=== PATIENT | male | born 1960 | race Caucasian/White ===

== ENCOUNTER 2017-04-22 12:14 | Inpatient (IN) | payer OTHER ==
[2017-04-22 13:54] VITALS: BMI 28.0
--- NOTE | 2017-04-22 15:12 | HP ---
COWS - Scale Resting Pulse: 1= OR 81-100 Sweatin=Flushed/Facial Moisture Restless Observation: 1= Difficult to Sit Still Pupil Size: 0= Normal to Room Light Bone or Joint Aches: 2= Severe Diffuse Aches Runny Nose/ Eye Tearin= Runny Nose/Eyes GI Upset > 30mins: 2= Nausea/Diarrhea Tremor Observation: 2= Slight Tremor Visible Yawning Observation: 2= >3x During Session Anxiety or Irritability: 2=Irritable/Anxious Goose Flesh Skin: 3=Piloerection COWS Score: 19 CIWA Score - CIWA Score Nausea/Vomitin-Mild Nausea/No Vomiting Muscle Tremors: 4-Moderate,w/Arms Extend Anxiety: 3 Agitation: 4-Moderately Restless Paroxysmal Sweats: 3 Orientation: 0-Oriented Tacttile Disturbances: 0-None Auditory Disturbances: 0-None Visual Disturbances: 0-None Headache: 0-None Present CIWA-Ar Total Score: 15 Admission ROS S - HPI Chief Complaint: I am here to detox off these drugs. Allergies/Adverse Reactions: Allergies Allergy/AdvReac Type Severity Reaction Status Date / Time No Known Allergies Allergy Verified 04/22/17 14:47 History of Present Illness: Pt is a 56yr old male with a history of alcohol and heroin dependence seeking detox for treatment. Exam Limitations: No Limitations - Ebola screening Have you traveled outside of the country in the last 21 days: No Have you had contact with anyone from an Ebola affected area: No Have you been sick,other than usual withdrawal symptoms: No Do you have a fever: No - Review of Systems Constitutional: Chills, Diaphoresis, Night Sweats, Changes in sleep EENT: reports: Tearing, Nose Congestion Respiratory: reports: No Symptoms reported Cardiac: reports: No Symptoms Reported GI: reports: Nausea, Poor Appetite, Poor Fluid Intake, Indigestion : reports: No Symptoms Reported Musculoskeletal: reports: Back Pain, Joint Pain, Muscle Pain Integumentary: reports: Flushing, Sweating Neuro: reports: Headache, Tingling, Tremors Endocrine: reports: Excessive Sweating, Flushing, Intolerance to Cold, Intolerance to Heat Hematology: reports: No Symptoms Reported Psychiatric: reports: Judgement Intact, Orientated x3, Agitated, Anxious Other Systems: Reviewed and Negative Patient History - Patient Medical History Hx Anemia: No Hx Asthma: Yes Hx Chronic Obstructive Pulmonary Disease (COPD): No Hx Cardiac Disorders: No Hx Hypertension: Yes Hx Hypercholesterolemia: No Hx Pacemaker: No HX Cerebrovascular Accident: No Hx Seizures: No Hx Dementia: No Hx Diabetes: No Hx Gastrointestinal Disorders: No Hx Liver Disease: No Hx Genitourinary Disorders: No Hx Sexually Transmitted Disorders: No Hx Renal Disease (ESRD): No Hx Thyroid Disease: No Hx Human Immunodeficiency Virus (HIV): No (NEGATIVE HX) Hx Hepatitis C: Yes (but completed treatment) Hx Depression: Yes Hx Suicide Attempt: No (denies) Hx Bipolar Disorder: Yes Hx Schizophrenia: No - Patient Surgical History Past Surgical History: No Hx Neurologic Surgery: No Hx Cataract Extraction: No Hx Cardiac Surgery: No Hx Lung Surgery: No Hx Breast Surgery: No Hx Breast Biopsy: No Hx Abdominal Surgery: No Hx Appendectomy: No Hx Cholecystectomy: No Hx Genitourinary Surgery: No Hx Section: No Hx Orthopedic Surgery: No Anesthesia Reaction: No - PPD History Previous Implant?: Yes Documented Results: Negative w/proof Implanted On Prior [facility] Admission?: Yes Date: 07/20/16 Results: 0 mm PPD to be Administered?: No - Reproductive History Patient is a Female of Child Bearing Age (11 -55 yrs old): No - Smoking Cessation Smoking history: Current every day smoker Have you smoked in the past 12 months: Yes Aproximately how many cigarettes per day: 5 Hx Chewing Tobacco Use: No Initiated information on smoking cessation: Yes 'Breaking Loose' booklet given: 04/22/17 - Substance & Tx. History Hx Alcohol Use: Yes Hx Substance Use: Yes Substance Use Type: Alcohol, Heroin Hx Substance Use Treatment: Yes (last detox [facility] [place] 07/18/16) - Substances Abused Heroin Route: Injection Frequency: Daily Amount used: 3-4 bags Age of first use: 26 Date of Last Use: 04/21/17 Alcohol-vodka Route: Oral Frequency: Daily Amount used: 2 pts. Age of first use: 20 Date of Last Use: 04/21/17 Family Disease History - Family Disease History Family Disease History: Diabetes: Mother (HTN), CA: Father ( -prostate - etoh), Other: Father, Mother, Brother (cocaine, alcohol), Sister (crack) Admission Physical Exam [facility] - Vital Signs Vital Signs: Vital Signs - 24 hr 04/22/17 13:52 Temperature 97.8 F Pulse Rate 93 H Respiratory 20 Rate Blood Pressure 147/90 - Physical General Appearance: Yes: Appropriately Dressed, Moderate Distress, Obese, Tremorous, Irritable, Sweating, Anxious HEENTM: Yes: Normal Voice Respiratory: Yes: Lungs Clear, Normal Breath Sounds, No Respiratory Distress Neck: Yes: No masses,lesions,Nodules Breast: Yes: Within Normal Limits Cardiology: Yes: Regular Rhythm, Regular Rate, S1, S2 Abdominal: Yes: Normal Bowel Sounds, Non Tender, Soft Genitourinary: Yes: Within Normal Limits Back: Yes: Normal Inspection Musculoskeletal: Yes: Back pain Extremities: Yes: Normal Capillary Refill, Normal Inspection, Non-Tender, Tremors Neurological: Yes: Fully Oriented, Alert, Normal Response Integumentary: Yes: Normal Color, Diaphoresis, Track Childs Lymphatic: Yes: Within Normal Limits - Diagnostic (1) Asthma Current Visit: Yes Status: Chronic Qualifiers: Asthma severity: mild intermittent Asthma complication type: uncomplicated Qualified Code(s): J45.20 - Mild intermittent asthma, uncomplicated (2) Essential (primary) hypertension Current Visit: Yes Status: Chronic (3) Nicotine dependence Current Visit: Yes Status: Chronic Qualifiers: Nicotine product type: cigarettes Substance use status: uncomplicated Qualified Code(s): F17.210 - Nicotine dependence, cigarettes, uncomplicated (4) Alcohol dependence with uncomplicated withdrawal Current Visit: Yes Status: Chronic (5) Opioid dependence with withdrawal Current Visit: Yes Status: Chronic Cleared for Admission [facility] - Detox or Rehab [facility] Level of Care: Medically Managed Detox Regimen/Protocol: Methadone/Librium S Breath Alcohol Content Breath Alcohol Content: 0 Urine Drug Screen - Results Drug Screen Negative: No Urine Drug Screen Results: OPI-Opiates, BZO-Benzodiazepines
[2017-04-22] MEDS ORDERED: MAGNESIUM HYDROX 2400MG/30ML ORAL SUSPENSION 30 ML CUP PO PRN (15:54)
[2017-04-22] MEDS ORDERED: MENTHOL/PHENOL 1 EACH UD MM PRN (15:54)
[2017-04-22] MEDS ORDERED: ACETAMINOPHEN 325 MG TABLET (FP) PO PRN (15:54)
[2017-04-22] MEDS ORDERED: P-EPHED 60MG/TRIPROLIDI 2.5MG TABLET PO PRN (15:54)
[2017-04-22] MEDS ORDERED: MAG HYDROX/AL HYDROX/SIMETH 30 ML UNIT-DOSE CUP PO PRN (15:54)
[2017-04-22] MEDS ORDERED: LOPERAMIDE HCL 2 MG CAPSULE PO PRN (15:54)
[2017-04-22] MEDS ORDERED: guaiFENesin/D-METHORPHAN HB 10 ML UNIT-DOSE CUPS PO PRN (15:54)
[2017-04-22] MEDS ORDERED: MAGNESIUM CITRATE 300 ML BOTTLE PO PRN (15:54)
[2017-04-22] MEDS ORDERED: ALBUTEROL SO4 6.7 GM HFA INHALER IH PRN (15:55)
[2017-04-22] MEDS ORDERED: chlordiazePOXIDE HCL 25 MG CAPSULE PO ONE (16:45)
[2017-04-22] MEDS: chlordiazePOXIDE HCL 25 MG CAPSULE PO SCH ×2 (17:40→22:46)
[2017-04-22] MEDS: IBUPROFEN 400 MG TABLET (FP) PO PRN (17:47)
[2017-04-22] MEDS ORDERED: METHADONE HCL 10 MG TABLET (FOR DETOX USE ONLY) PO ONE ×2 (19:00→23:00)
[2017-04-22] MEDS ORDERED: NICOTINE POLACRILEX 2 MG GUM BUC PRN (19:15)
[2017-04-22 20:53] LABS: URINE APPEARANCE CLEAR; URINE BILIRUBIN NEGATIVE (NEGATIVE); URINE BLOOD NEGATIVE (NEGATIVE); URINE COLOR YELLOW; URINE GLUCOSE (UA) NEGATIVE (NEGATIVE); URINE KETONE NEGATIVE (NEGATIVE); URINE LEUK ESTERASE NEGATIVE (NEGATIVE); URINE NITRITE NEGATIVE (NEGATIVE); URINE PROTEIN NEGATIVE (NEGATIVE); URINE UROBILINOGEN NEGATIVE E.U./dl (0.2-1.0)
[2017-04-22] MEDS: THIAMINE HCL 100 MG TABLET (FP) PO SCH (22:46)
[2017-04-22] MEDS: NICOTINE 14 MG/24 HOURS TOPICAL PATCH TD SCH (22:48)
[2017-04-22] MEDS: cloNIDine HCL 0.1 MG TABLET PO PRN (22:48)
[2017-04-23] MEDS: chlordiazePOXIDE HCL 25 MG CAPSULE PO SCH ×4 (05:41→22:12)
--- NOTE | 2017-04-23 09:47 | EKG ---
Test Reason : Blood Pressure : / mmHG Vent. Rate : 073 BPM Atrial Rate : 073 BPM P-R Int : 166 ms QRS Dur : 086 ms QT Int : 426 ms P-R-T Axes : 035 001 029 degrees QTc Int : 469 ms NORMAL SINUS RHYTHM NORMAL ECG NO PREVIOUS ECGS AVAILABLE Confirmed by RACHEL KHOURY MD ([id number]) on 04/23/2017 9:47:02 AM Referred By: Galen Grullon Confirmed By:RACHEL KHOURY MD
[2017-04-23] MEDS ORDERED: METHADONE HCL 10 MG TABLET (FOR DETOX USE ONLY) PO SCH (10:00)
[2017-04-23 10:07] LABS: MCH 30.6 pg (25.7-33.7); MCHC 33.8 g/dl (32.0-35.9); MEAN CELL VOLUME 90.5 fl (80-96); MEAN PLT VOLUME 10.2 fl (7.5-11.1); PLATELET COUNT 115 K/MM3 (134-434); RDW 14.5 % (11.9-15.9); WHITE BLOOD COUNT 7.1 K/mm3 (4.0-10.0)
[2017-04-23 10:18] LABS: ALK PHOS 64 U/L (45-117); ANION GAP 7 (8-16); BILIRUBIN,TOTAL 0.9 mg/dL (0.2-1.0); CALCIUM 9.4 mg/dL (8.5-10.1); CO2 29 mmol/L (21-32); CREATININE 0.8 mg/dL (0.7-1.3); GLUCOSE,RANDOM 125 mg/dL (74-106); SGOT/AST 31 U/L (15-37); SGPT/ALT 31 U/L (12-78); TOT PROT 8.4 g/dl (6.4-8.2)
[2017-04-23] MEDS: NICOTINE 14 MG/24 HOURS TOPICAL PATCH TD SCH (11:05)
[2017-04-23] MEDS: cloNIDine HCL 0.1 MG TABLET PO PRN ×2 (11:07→22:12)
[2017-04-23] MEDS: IBUPROFEN 400 MG TABLET (FP) PO PRN ×2 (11:09→17:46)
[2017-04-23] MEDS: amLODIPine BESYLATE 10 MG TABLET (FP) PO SCH (11:09)
[2017-04-23] MEDS: PRENATAL VITAMINS W/ FOLIC ACID TABLET (FP) PO SCH (11:09)
--- NOTE | 2017-04-23 11:30 | PN ---
S CIWA - CIWA Score Nausea/Vomitin Muscle Tremors: 3 Anxiety: 3 Paroxysmal Sweats: 1-Minimal Palms Moist Orientation: 0-Oriented Tacttile Disturbances: 1-Very Mild Itch/Numbness Auditory Disturbances: 1-Very Mild Visual Disturbances: 1-Very Mild Sensitivity Headache: 2-Mild BHS COWS - Scale Resting Pulse: 0= [place] 80 or Below Sweatin= Chills/Flushing Restless Observation: 3= Extraneous Movement Pupil Size: 1= Pupils >than Normal Bone or Joint Aches: 2= Severe Diffuse Aches Runny Nose/ Eye Tearin= Runny Nose/Eyes GI Upset > 30mins: 2= Nausea/Diarrhea Tremor Observation of Outstretched Hands: 2= Slight Tremor Visible Yawning Observation: 1= 1-2x During Session Anxiety or Irritability: 2=Irritable/Anxious Goose Flesh Skin: 0=Smooth Skin COWS Score: 16 BHS Progress Note (SOAP) Subjective: alert,irritable,anxious,interrupted sleep,tremor,pain in the body and back Objective: 04/23/17 11:28 Vital Signs Temperature 96.4 F L 04/23/17 10:50 Pulse Rate 69 04/23/17 10:50 Respiratory Rate 20 04/23/17 10:50 Blood Pressure 117/80 04/23/17 10:50 O2 Sat by Pulse Oximetry (%) ekg nsr,normal ecg Laboratory Last Values WBC 7.1 K/mm3 (4.0-10.0) D 04/23/17 06:00 RBC 4.58 M/mm3 (4.00-5.60) 04/23/17 06:00 Hgb 14.0 GM/dL (11.7-16.9) 04/23/17 06:00 Hct 41.5 % (35.4-49) 04/23/17 06:00 MCV 90.5 fl (80-96) 04/23/17 06:00 MCHC 33.8 g/dl (32.0-35.9) 04/23/17 06:00 RDW 14.5 % (11.9-15.9) 04/23/17 06:00 Plt Count 115 K/MM3 (134-434) L 04/23/17 06:00 MPV 10.2 fl (7.5-11.1) 04/23/17 06:00 Sodium 137 mmol/L (136-145) 04/23/17 06:00 Potassium 3.6 mmol/L (3.5-5.1) 04/23/17 06:00 Chloride 101 mmol/L (98-107) 04/23/17 06:00 Carbon Dioxide 29 mmol/L (21-32) 04/23/17 06:00 Anion Gap 7 (8-16) L 04/23/17 06:00 BUN 13 mg/dL (7-18) 04/23/17 06:00 Creatinine 0.8 mg/dL (0.7-1.3) 04/23/17 06:00 Creat Clearance w eGFR > 60 (>60) 04/23/17 06:00 Random Glucose 125 mg/dL (74-106) H 04/23/17 06:00 Calcium 9.4 mg/dL (8.5-10.1) 04/23/17 06:00 Total Bilirubin 0.9 mg/dL (0.2-1.0) D 04/23/17 06:00 AST 31 U/L (15-37) D 04/23/17 06:00 ALT 31 U/L (12-78) 04/23/17 06:00 Alkaline Phosphatase 64 U/L (45-117) 04/23/17 06:00 Total Protein 8.4 g/dl (6.4-8.2) H 04/23/17 06:00 Albumin 4.0 g/dl (3.4-5.0) 04/23/17 06:00 Urine Color Yellow 04/22/17 20:39 Urine Appearance Clear 04/22/17 20:39 Urine pH 6.0 (5.0-8.0) D 04/22/17 20:39 Ur Specific [place] 1.020 (1.005-1.025) 04/22/17 20:39 Urine Protein Negative (NEGATIVE) 04/22/17 20:39 Urine Glucose (UA) Negative (NEGATIVE) 04/22/17 20:39 Urine Ketones Negative (NEGATIVE) 04/22/17 20:39 Urine Blood Negative (NEGATIVE) 04/22/17 20:39 Urine Nitrite Negative (NEGATIVE) 04/22/17 20:39 Urine Bilirubin Negative (NEGATIVE) 06/15/17 20:39 Urine Urobilinogen Negative E.U./dl (0.2-1.0) 04/22/17 20:39 Ur Leukocyte Esterase Negative (NEGATIVE) 04/22/17 20:39 Assessment: 04/23/17 11:29 withdrawal symptom Plan: continue detox,initial glucose is 125,fasting glucose in am
[2017-04-23] MEDS: HYDROCORTISONE 2.5% LOTION - 1 BOTTLE TP PRN (12:12)
--- NOTE | 2017-04-23 12:57 | CONSULT ---
[facility] Psychiatric Consult - Data Date of interview: 04/23/17 Admission source: [facility] Identifying data: Another admission to [facility] for this 56 y/o male seeking detox treatment on for heroin and alcohol dependence.Patient is single,a father of four,domiciled,unemployed and supported on Public Assistance. Substance Abuse History: - Smoking Cessation. Smoking history: Current every day smoker. Have you smoked in the past 12 months: Yes. Aproximately how many cigarettes per day: 5. Hx Chewing Tobacco Use: No. Initiated information on smoking cessation: Yes. 'Breaking Loose' booklet given: 04/22/17. - Substance & Tx. History. Hx Alcohol Use: Yes. Hx Substance Use: Yes. Substance Use Type : Alcohol, Heroin. Hx Substance Use Treatment: Yes (last detox [facility] 08/23). - Substances Abused. Heroin. Route: Injection. Frequency: Daily. Amount used: 3-4 bags. Age of first use: 26. Date of Last Use: 04/21/17. * * Alcohol-vodka. Route: Oral. Frequency: Daily. Amount used: 2 pts. Age of first use: 20. Date of Last Use: 04/21/17. Confirmed by patient. Medical History: Significant for HTN,bronchial asthma and hepatitis C. Psychiatric History: No reported history of psychiatric hospitalizations.Mr Norman is currrently seeing a " therapist " at the [facility] in [facility].He is maintained on a regimen of gabapentin 800 mg po bid + zoloft 50 mg/ day.Patient denies history of suicide attempts. Physical/Sexual Abuse/Trauma History: Patient denies. Additional Comment: Urine Drug Screen Results: OPI-Opiates, BZO- Benzodiazepines.Noted. Mental Status Exam - Mental Status Exam Alert and Oriented to: Time, Place, Person Cognitive Function: Good Patient Appearance: Well Groomed Mood: Withdrawn, Anxious, Hopeful Affect: Mood Congruent Patient Behavior: Appropriate, Cooperative Speech Pattern: Clear Voice Loudness: Normal Thought Process: Goal Oriented Thought Disorder: Not Present Hallucinations: Denies Suicidal Ideation: Denies Homicidal Ideation: Denies Insight/Judgement: Poor Sleep: Fair Appetite: Good Muscle strength/Tone: Normal Gait/Station: Normal Psychiatric Findings - Problem List ([place] 1, 2,3) (1) Alcohol dependence with uncomplicated withdrawal Current Visit: Yes Status: Acute (2) Opioid dependence with withdrawal Current Visit: Yes Status: Acute (3) Nicotine dependence Current Visit: Yes Status: Acute Qualifiers: Nicotine product type: cigarettes Substance use status: uncomplicated Qualified Code(s): F17.210 - Nicotine dependence, cigarettes, uncomplicated (4) Substance induced mood disorder Current Visit: Yes Status: Acute (5) Bipolar II disorder Current Visit: Yes Status: Chronic (6) Asthma Current Visit: Yes Status: Chronic Qualifiers: Asthma severity: mild intermittent Asthma complication type: uncomplicated Qualified Code(s): J45.20 - Mild intermittent asthma, uncomplicated (7) Essential (primary) hypertension Current Visit: Yes Status: Chronic (8) Hepatitis C Current Visit: Yes Status: Chronic - Initial Treatment Plan Initial Treatment Plan: Psychoeducation.Detoxification.medications : zoloft 50 mg po daily + gabapentin 600 mg po tid.Side effects/benefits discussed with patient.He agrees with this careplan.Observation.
[2017-04-23] MEDS: GABAPENTIN 300 MG CAPSULE (FP) PO SCH ×2 (14:50→22:12)
[2017-04-23] MEDS: chlordiazePOXIDE HCL 25 MG CAPSULE PO PRN (14:55)
[2017-04-23] MEDS: THIAMINE HCL 100 MG TABLET (FP) PO SCH (22:11)
[2017-04-23] MEDS: diphenhydrAMINE HCL 50 MG CAPSULE PO PRN (22:12)
[2017-04-24] MEDS: GABAPENTIN 300 MG CAPSULE (FP) PO SCH ×3 (05:32→22:45)
[2017-04-24] MEDS: chlordiazePOXIDE HCL 25 MG CAPSULE PO SCH ×2 (05:32→10:53)
[2017-04-24] MEDS: SERTRALINE HCL 50 MG TABLET (FP) PO SCH (10:53)
[2017-04-24] MEDS: PRENATAL VITAMINS W/ FOLIC ACID TABLET (FP) PO SCH (10:53)
[2017-04-24] MEDS: METHADONE HCL 5 MG TABLET (FOR DETOX USE ONLY) PO SCH (10:53)
[2017-04-24] MEDS: amLODIPine BESYLATE 10 MG TABLET (FP) PO SCH (10:53)
[2017-04-24] MEDS: NICOTINE 14 MG/24 HOURS TOPICAL PATCH TD SCH (10:54)
[2017-04-24] MEDS: IBUPROFEN 600 MG TABLET (FP) PO PRN ×2 (10:55→17:49)
--- NOTE | 2017-04-24 13:41 | PN ---
[facility] CIWA - CIWA Score Nausea/Vomitin-Mild Nausea/No Vomiting Muscle Tremors: 4-Moderate,w/Arms Extend Anxiety: 3 Agitation: 3 Paroxysmal Sweats: 3 Orientation: 0-Oriented Tacttile Disturbances: 1-Very Mild Itch/Numbness Auditory Disturbances: 0-None Visual Disturbances: 0-None Headache: 0-None Present CIWA-Ar Total Score: 15 BHS COWS - Scale Resting Pulse: 0= [place] 80 or Below Sweatin=Flushed/Facial Moisture Restless Observation: 1= Difficult to Sit Still Pupil Size: 0= Normal to Room Light Bone or Joint Aches: 1= Mild Discomfort Runny Nose/ Eye Tearin= Runny Nose/Eyes GI Upset > 30mins: 2= Nausea/Diarrhea Tremor Observation of Outstretched Hands: 2= Slight Tremor Visible Yawning Observation: 1= 1-2x During Session Anxiety or Irritability: 2=Irritable/Anxious Goose Flesh Skin: 0=Smooth Skin COWS Score: 13 S Progress Note (SOAP) Subjective: Sweating,interrupted sleep,restless,tremors,anxiety,muscle aches Objective: 04/24/17 13:40 Vital Signs - 8 hr 04/24/17 04/24/17 06:18 10:00 Temperature 97.5 F L 96.1 F L Pulse Rate 61 64 Respiratory 16 18 Rate Blood Pressure 98/66 124/79 Laboratory Last Values WBC 7.1 K/mm3 (4.0-10.0) D 04/23/17 06:00 RBC 4.58 M/mm3 (4.00-5.60) 04/23/17 06:00 Hgb 14.0 GM/dL (11.7-16.9) 04/23/17 06:00 Hct 41.5 % (35.4-49) 04/23/17 06:00 MCV 90.5 fl (80-96) 04/23/17 06:00 MCHC 33.8 g/dl (32.0-35.9) 04/23/17 06:00 RDW 14.5 % (11.9-15.9) 04/23/17 06:00 Plt Count 115 K/MM3 (134-434) L 04/23/17 06:00 MPV 10.2 fl (7.5-11.1) 04/23/17 06:00 Sodium 137 mmol/L (136-145) 04/23/17 06:00 Potassium 3.6 mmol/L (3.5-5.1) 04/23/17 06:00 Chloride 101 mmol/L (98-107) 04/23/17 06:00 Carbon Dioxide 29 mmol/L (21-32) 04/23/17 06:00 Anion Gap 7 (8-16) L 04/23/17 06:00 BUN 13 mg/dL (7-18) 04/23/17 06:00 Creatinine 0.8 mg/dL (0.7-1.3) 04/23/17 06:00 Creat Clearance w eGFR > 60 (>60) 04/23/17 06:00 POC Glucometer 97 UNITS (()) 04/24/17 06:18 Random Glucose 125 mg/dL (74-106) H 04/23/17 06:00 Fasting Glucose 114 mg/dL (70-105) H 04/24/17 08:00 Calcium 9.4 mg/dL (8.5-10.1) 04/23/17 06:00 Total Bilirubin 0.9 mg/dL (0.2-1.0) D 04/23/17 06:00 AST 31 U/L (15-37) D 04/23/17 06:00 ALT 31 U/L (12-78) 04/23/17 06:00 Alkaline Phosphatase 64 U/L (45-117) 04/23/17 06:00 Total Protein 8.4 g/dl (6.4-8.2) H 04/23/17 06:00 Albumin 4.0 g/dl (3.4-5.0) 04/23/17 06:00 Urine Color Yellow 04/22/17 20:39 Urine Appearance Clear 04/22/17 20:39 Urine pH 6.0 (5.0-8.0) D 04/22/17 20:39 Ur Specific [place] 1.020 (1.005-1.025) 04/22/17 20:39 Urine Protein Negative (NEGATIVE) 04/22/17 20:39 Urine Glucose (UA) Negative (NEGATIVE) 04/22/17 20:39 Urine Ketones Negative (NEGATIVE) 04/22/17 20:39 Urine Blood Negative (NEGATIVE) 04/22/17 20:39 Urine Nitrite Negative (NEGATIVE) 04/22/17 20:39 Urine Bilirubin Negative (NEGATIVE) 04/22/17 20:39 Urine Urobilinogen Negative E.U./dl (0.2-1.0) 04/22/17 20:39 Ur Leukocyte Esterase Negative (NEGATIVE) 04/22/17 20:39 RPR Titer Nonreactive (NONREACTIVE) 04/23/17 06:00 labs noted Assessment: 04/24/17 13:40 Withdrawal sx. Plan: Continue detox
[2017-04-24] MEDS: chlordiazePOXIDE HCL 25 MG CAPSULE PO PRN (14:07)
[2017-04-24] MEDS: chlordiazePOXIDE 5 MG CAPSULE PO SCH ×2 (18:03→22:45)
[2017-04-24] MEDS: THIAMINE HCL 100 MG TABLET (FP) PO SCH (22:45)
[2017-04-25] MEDS: chlordiazePOXIDE 5 MG CAPSULE PO SCH ×2 (06:13→10:55)
[2017-04-25] MEDS: GABAPENTIN 300 MG CAPSULE (FP) PO SCH ×3 (06:15→22:50)
[2017-04-25] MEDS: IBUPROFEN 600 MG TABLET (FP) PO PRN ×3 (06:17→22:53)
[2017-04-25] MEDS: PRENATAL VITAMINS W/ FOLIC ACID TABLET (FP) PO SCH (10:55)
[2017-04-25] MEDS: amLODIPine BESYLATE 10 MG TABLET (FP) PO SCH (10:55)
[2017-04-25] MEDS: SERTRALINE HCL 50 MG TABLET (FP) PO SCH (10:55)
[2017-04-25] MEDS: NICOTINE 14 MG/24 HOURS TOPICAL PATCH TD SCH (10:56)
[2017-04-25] MEDS: METHADONE HCL 5 MG TABLET (FOR DETOX USE ONLY) PO SCH (10:56)
[2017-04-25] MEDS: HYDROCORTISONE 2.5% LOTION - 1 BOTTLE TP PRN (11:00)
--- NOTE | 2017-04-25 13:04 | PN ---
BHS Progress Note (SOAP) Subjective: Sweating,interrupted sleep,restless, Objective: 04/25/17 13:03 Vital Signs - 8 hr 04/25/17 04/25/17 06:40 10:00 Temperature 97.3 F L 97.0 F L Pulse Rate 73 69 Respiratory 18 18 Rate Blood Pressure 103/69 133/93 Laboratory Tests 04/22/17 04/23/17 04/23/17 20:39 06:00 06:00 WBC 7.1 D RBC 4.58 Hgb 14.0 Hct 41.5 MCV 90.5 MCHC 33.8 RDW 14.5 Plt Count 115 L MPV 10.2 Sodium 137 Potassium 3.6 Chloride 101 Carbon Dioxide 29 Anion Gap 7 L BUN 13 Creatinine 0.8 Creat Clearance w eGFR > 60 POC Glucometer Random Glucose 125 H Fasting Glucose Calcium 9.4 Total Bilirubin 0.9 D AST 31 D ALT 31 Alkaline Phosphatase 64 Total Protein 8.4 H Albumin 4.0 Urine Color Yellow Urine Appearance Clear Urine pH 6.0 D Ur Specific [place] 1.020 Urine Protein Negative Urine Glucose (UA) Negative Urine Ketones Negative Urine Blood Negative Urine Nitrite Negative Urine Bilirubin Negative Urine Urobilinogen Negative Ur Leukocyte Esterase Negative RPR Titer 04/23/17 04/24/17 04/24/17 06:00 06:18 08:00 WBC RBC Hgb Hct MCV MCHC RDW Plt Count MPV Sodium Potassium Chloride Carbon Dioxide Anion Gap BUN Creatinine Creat Clearance w eGFR POC Glucometer 97 Random Glucose Fasting Glucose 114 H Calcium Total Bilirubin AST ALT Alkaline Phosphatase Total Protein Albumin Urine Color Urine Appearance Urine pH Ur Specific [place] Urine Protein Urine Glucose (UA) Urine Ketones Urine Blood Urine Nitrite Urine Bilirubin Urine Urobilinogen Ur Leukocyte Esterase RPR Titer Nonreactive labs noted Assessment: 04/25/17 13:03 Withdrawal sx. Plan: Continue detox
[2017-04-25] MEDS: chlordiazePOXIDE HCL 25 MG CAPSULE PO PRN (14:55)
[2017-04-25] MEDS: chlordiazePOXIDE HCL 10 MG CAPSULE PO SCH ×2 (17:54→22:50)
[2017-04-25] MEDS: THIAMINE HCL 100 MG TABLET (FP) PO SCH (22:51)
[2017-04-26] MEDS: GABAPENTIN 300 MG CAPSULE (FP) PO SCH ×3 (05:53→22:25)
[2017-04-26] MEDS: IBUPROFEN 600 MG TABLET (FP) PO PRN ×2 (05:53→18:31)
[2017-04-26] MEDS: chlordiazePOXIDE HCL 10 MG CAPSULE PO SCH ×2 (05:53→11:17)
[2017-04-26] MEDS ORDERED: METHADONE HCL 10 MG TABLET (FOR DETOX USE ONLY) PO SCH (10:00)
--- NOTE | 2017-04-26 10:43 | PN ---
S Progress Note (SOAP) Subjective: ALERT,IRRITABLE,ANXIOUS,INTERRUPTED SLEEP,PAIN IN THE NECK AND UPPER BACK Objective: 04/26/17 10:42 Vital Signs Temperature 98.1 F 04/26/17 06:00 Pulse Rate 69 04/26/17 06:00 Respiratory Rate 18 04/26/17 06:00 Blood Pressure 128/91 04/26/17 06:00 O2 Sat by Pulse Oximetry (%) Assessment: 04/26/17 10:43 WITHDRAWAL SYMPTOM Plan: CONTINUE DETOX,HOT PACK,DISCHARGE IN AM
[2017-04-26] MEDS: amLODIPine BESYLATE 10 MG TABLET (FP) PO SCH (11:17)
[2017-04-26] MEDS: NICOTINE 14 MG/24 HOURS TOPICAL PATCH TD SCH (11:17)
[2017-04-26] MEDS: SERTRALINE HCL 50 MG TABLET (FP) PO SCH (11:17)
[2017-04-26] MEDS: PRENATAL VITAMINS W/ FOLIC ACID TABLET (FP) PO SCH (11:17)
[2017-04-26] MEDS ORDERED: LIDOCAINE 5% TOPICAL PATCH TP ONE (11:27)
[2017-04-26] MEDS ORDERED: LIDOCAINE PATCH REMOVAL MC SCH (22:00)
[2017-04-26] MEDS: THIAMINE HCL 100 MG TABLET (FP) PO SCH (22:25)
[2017-04-26] MEDS: cloNIDine HCL 0.1 MG TABLET PO PRN (22:25)
[2017-04-26] MEDS: METHYL SALICYLATE/MENTHOL OINT 30 GM TUBE TP SCH (22:25)
[2017-04-26] MEDS: diphenhydrAMINE HCL 50 MG CAPSULE PO PRN (22:25)
[2017-04-27] MEDS: GABAPENTIN 300 MG CAPSULE (FP) PO SCH (05:35)
[2017-04-27] MEDS ORDERED: METHADONE HCL 5 MG TABLET (FOR DETOX USE ONLY) PO SCH (06:00)
--- NOTE | 2017-04-27 07:28 | PN ---
S Progress Note (SOAP) Subjective: ALERT,NO COMPLAINT Objective: 04/27/17 07:26 Vital Signs Temperature 97.3 F L 04/27/17 06:25 Pulse Rate 64 04/27/17 06:25 Respiratory Rate 16 04/27/17 06:25 Blood Pressure 114/80 04/27/17 06:25 O2 Sat by Pulse Oximetry (%) Assessment: 04/27/17 07:27 DETOX COMPLETED,NO WITHDRAWAL SYMPTOM Plan: DISCHARGE TODAY,FOLLOW UP WITH AFTER CARE PROGRAM ARRANGEMENT
--- NOTE | 2017-04-27 07:31 | DS ---
[facility] Detox Discharge Summary Admission Date: 04/22/17 Discharge Date: 04/27/17 - History Present History: Alcohol Dependence, Opioid Dependence Additional Comments: FOLLOW UP WITH AFTER [facility] PROGRAM ARRANGEMENT Pertinent Past History: ASTHMA ESSENTIAL HYPERTENSION NICOTINE DEPENDENCE HEPATITIS C BIPOLAR 2 DISORDER - Physical Exam Results Vital Signs: Vital Signs Temperature 97.3 F L 04/27/17 06:25 Pulse Rate 64 04/27/17 06:25 Respiratory Rate 16 04/27/17 06:25 Blood Pressure 114/80 04/27/17 06:25 O2 Sat by Pulse Oximetry (%) Pertinent Admission Physical Exam Findings: WITHDRAWAL SYMPTOM - Treatment Hospital Course: Detox Protocol Followed, Detoxed Safely, Responded well, Discharged Condition Good, Rehab Referral Accepted Patient has Accepted a Rehab Referral to: [facility] - Medication Discharge Medications: Ambulatory Orders Albuterol Sulfate Inhaler - [Ventolin HFA Inhaler -] 2 inh PO Q4H PRN 10/11/14 Sertraline HCl [Zoloft -] 50 mg PO DAILY 07/18/16 Amlodipine Besylate [Norvasc -] 20 mg PO DAILY 04/22/17 Gabapentin [Neurontin -] 300 mg PO Q8H 04/22/17 Gabapentin [Neurontin -] 600 mg PO TID #90 capsule 04/23/17 Sertraline HCl [Zoloft -] 50 mg PO DAILY #30 tablet 04/23/17 - Diagnosis (1) Alcohol dependence with uncomplicated withdrawal Current Visit: Yes Status: Acute (2) Opioid dependence with withdrawal Current Visit: Yes Status: Acute (3) Asthma Current Visit: Yes Status: Chronic Qualifiers: Asthma severity: mild intermittent Asthma complication type: uncomplicated Qualified Code(s): J45.20 - Mild intermittent asthma, uncomplicated (4) Bipolar II disorder Current Visit: Yes Status: Chronic (5) Essential (primary) hypertension Current Visit: Yes Status: Chronic (6) Hepatitis C Current Visit: Yes Status: Chronic - AMA Did Patient Leave Against Medical Advice: No
[2017-04-27 09:35] VITALS: BP 141/95; PULSE 77; TEMP 96.8
[2017-04-27] MEDS: NICOTINE 14 MG/24 HOURS TOPICAL PATCH TD SCH (09:59)
[2017-04-27] MEDS: METHYL SALICYLATE/MENTHOL OINT 30 GM TUBE TP SCH (09:59)
[2017-04-27] MEDS: PRENATAL VITAMINS W/ FOLIC ACID TABLET (FP) PO SCH (09:59)
[2017-04-27] MEDS: amLODIPine BESYLATE 10 MG TABLET (FP) PO SCH (09:59)
[2017-04-27] MEDS: SERTRALINE HCL 50 MG TABLET (FP) PO SCH (09:59)
[2017-04-27] MEDS: HYDROCORTISONE 2.5% LOTION - 1 BOTTLE TP PRN (10:00)
[2017-04-27] MEDS ORDERED: LIDOCAINE 5% TOPICAL PATCH TP ONE (10:05)
[2017-04-27] MEDS ORDERED: LIDOCAINE PATCH REMOVAL MC SCH (22:00)
== END 2017-04-27 10:44 | disposition home or self-care (01) | DRG 773 ==
LOC: YASAS 12:14 → Y6N 15:15
PROVIDERS: ADMIT Internal Medicine; ATTEND Internal Medicine
PROC: HZ2ZZZZ Detoxification Services for Substance Abuse Treatment (ICD-10-PCS; principal; 2017-04-22)
DX: F11.23 Opioid dependence with withdrawal (principal); F10.230 Alcohol dependence with withdrawal, uncomplicated; F17.210 Nicotine dependence, cigarettes, uncomplicated; F31.81 Bipolar II disorder; F19.24 Other psychoactive substance dependence with psychoactive substance-induced mood disorder; J45.20 Mild intermittent asthma, uncomplicated; I10 Essential (primary) hypertension; B18.2 Chronic viral hepatitis C; E66.9 Obesity, unspecified; Z68.28 Body mass index [BMI] 28.0-28.9, adult
CPT/HCPCS: 36415; 80053; 81003; 82947; 85027; 86593; 93005; 93010

== ENCOUNTER 2018-09-16 10:26 | Inpatient (IN) | payer OTHER ==
[2018-09-16 10:34] VITALS: BMI 28.3
--- NOTE | 2018-09-16 13:54 | HP ---
CIWA Score Nausea/Vomitin Muscle Tremors: 2 Anxiety: 2 Agitation: 2 Paroxysmal Sweats: 1-Minimal Palms Moist Orientation: 0-Oriented Tacttile Disturbances: 1-Very Mild Itch/Numbness Auditory Disturbances: 1-Very Mild Visual Disturbances: 1-Very Mild Sensitivity Headache: 2-Mild CIWA-Ar Total Score: 14 - Admission Criteria OASAS Guidelines: Admission for Medically Managed Detox: Requires at least one of the followin. CIWA greater than 12 2. Seizures within the past 24 hours 3. Delirium tremens within the past 24 hours 4. Hallucinations within the past 24 hours 5. Acute intervention needed for co occurring medical disorder 6. Acute intervention needed for co occurring psychiatric disorder 7. Severe withdrawal that cannot be handled at a lower level of care (continued vomiting, continued diarrhea, abnormal vital signs) requiring intravenous medication and/or fluids 8. Patient presents the following: CIWA greater than 12 Admission Criteria Met: Admission criteria met Admission ROS S - HPI Chief Complaint: i need help to stop drinking alcohol,heroin abused,on suboxone maintenance Allergies/Adverse Reactions: Allergies Allergy/AdvReac Type Severity Reaction Status Date / Time No Known Allergies Allergy Verified 09/16/18 11:18 History of Present Illness: this 58 years old male with alcohol dependence,heroin abused,suboxone maintenance 8mgs/2mgs sl [facility], last detox 04/22/17 to 04/27/17 completed nicotine dependence history of hypertension on meds weight loss multiple admissions in detox longest period sobriety 15 months plan to go to rehab resection of thoracic aortic aneurysm on 06/26/17 at [facility] - Ebola screening Have you traveled outside of the country in the last 21 days: No Have you had contact with anyone from an Ebola affected area: No Have you been sick,other than usual withdrawal symptoms: No - Review of Systems Constitutional: Chills, Loss of Appetite, Malaise, Night Sweats, Changes in sleep, Weakness, Unintentional Wgt. Loss EENT: reports: Nose Congestion Respiratory: reports: No Symptoms reported Cardiac: reports: No Symptoms Reported, Other (s/p resection of thoracic aortic aneurysm in 06/26/17 at [facility]) GI: reports: Nausea, Vomiting, Abdominal cramping : reports: No Symptoms Reported Musculoskeletal: reports: Back Pain, Muscle Pain Integumentary: reports: Dryness Neuro: reports: Headache, Tremors Endocrine: reports: No Symptoms Reported Hematology: reports: No Symptoms Reported Psychiatric: reports: No Sypmtoms Reported, Judgement Intact, Mood/Affect Appropiate, Orientated x3 Patient History - Patient Medical History Hx Anemia: No Hx Asthma: Yes (ON ALBUTEROL) Hx Chronic Obstructive Pulmonary Disease (COPD): No Hx Cardiac Disorders: Yes (ANEURYSM 2017 surgery on 06/26/17) Hx Hypertension: Yes (ON MEDS) Hx Hypercholesterolemia: No Hx Pacemaker: No HX Cerebrovascular Accident: No Hx Seizures: No Hx Dementia: No Hx Diabetes: No Hx Gastrointestinal Disorders: No Hx Liver Disease: No Hx Genitourinary Disorders: No Hx Sexually Transmitted Disorders: No Hx Renal Disease (ESRD): No Hx Thyroid Disease: No Hx Human Immunodeficiency Virus (HIV): No (NEGATIVE HX last 06/25 ) Hx Hepatitis C: Yes (but completed treatment) Hx Depression: Yes Hx Suicide Attempt: No (denies) Hx Bipolar Disorder: Yes (do not want to see psychiatrist) Hx Schizophrenia: No Other Medical History: no suicidal,no homicidal - Patient Surgical History Past Surgical History: No Hx Neurologic Surgery: No Hx Cataract Extraction: No Hx Cardiac Surgery: Yes (graft for thoracic aortic aneurysm on 06/26/17) Hx Lung Surgery: No Hx Breast Surgery: No Hx Breast Biopsy: No Hx Abdominal Surgery: No Hx Appendectomy: No Hx Cholecystectomy: No Hx Genitourinary Surgery: No Hx Section: No Hx Orthopedic Surgery: No Anesthesia Reaction: No - PPD History Previous Implant?: Yes Documented Results: Negative w/proof Date: 07/20/16 Results: 0 mm PPD to be Administered?: Yes - Smoking Cessation Smoking history: Current every day smoker Have you smoked in the past 12 months: Yes Aproximately how many cigarettes per day: 10 Cigars Per Day: 0 Hx Chewing Tobacco Use: No Initiated information on smoking cessation: Yes 'Breaking Loose' booklet given: 09/16/18 - Substances Abused Alcohol Route: Oral Frequency: Daily Amount used: 1 pint daily, 2-3 16oz cans of beer Age of first use: 20 Date of Last Use: 09/15/18 Heroin Route: Injection Frequency: Daily Amount used: 10 bags Age of first use: 32 Date of Last Use: 11/08/18 Suboxone Route: Oral Amount used: 1 film Age of first use: 58 Date of Last Use: 09/14/18 Family Disease History - Family Disease History Family Disease History: Diabetes: Mother (HTN), CA: Father ( -prostate - etoh), Other: Father, Mother, Brother (cocaine, alcohol), Sister (crack) Admission Physical Exam [facility] - Vital Signs Vital Signs: Vital Signs - 24 hr 09/16/18 10:29 Temperature 96.7 F L Pulse Rate 80 Respiratory 17 Rate Blood Pressure 146/86 - Physical General Appearance: Yes: Moderate Distress, Tremorous, Irritable, Sweating, Anxious HEENTM: Yes: Normal ENT Inspection, STEVE, Pharynx Normal Respiratory: Yes: Within Normal Limits, Lungs Clear, Normal Breath Sounds Neck: Yes: Within Normal Limits, Supple, Trachea in good position Breast: Yes: Within Normal Limits Cardiology: Yes: Within Normal Limits, Regular Rhythm, Regular Rate, S1, S2, Surgical Scar (scar mistrenal area) Abdominal: Yes: Within Normal Limits, Normal Bowel Sounds, Non Tender, Flat, Soft Genitourinary: Yes: Within Normal Limits Back: Yes: Muscle Spasm Extremities: Yes: Within Normal Limits, Normal Range of Motion, Tremors 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 intact, Fully Oriented, Alert, Motor Strength 5/5 Integumentary: Yes: Dry Lymphatic: Yes: Within Normal Limits - Diagnostic (1) Alcohol dependence with uncomplicated withdrawal Current Visit: No Status: Acute (2) Nicotine dependence Current Visit: No Status: Acute Qualifiers: Nicotine product type: cigarettes Substance use status: uncomplicated Qualified Code(s): F17.210 - Nicotine dependence, cigarettes, uncomplicated (3) Asthma Current Visit: No Status: Chronic Qualifiers: Asthma severity: mild intermittent Asthma complication type: uncomplicated (4) Essential (primary) hypertension Current Visit: No Status: Chronic (5) Hepatitis C Current Visit: No Status: Chronic (6) Heroin abuse Current Visit: Yes Status: Acute (7) Encounter for monitoring Suboxone maintenance therapy Current Visit: Yes Status: Acute Cleared for Admission [facility] - Detox or Rehab [facility] Level of Care: Medically Managed Detox Regimen/Protocol: Librium [facility] Breath Alcohol Content Breath Alcohol Content: 0 Urine Drug Screen - Results Drug Screen Negative: No Urine Drug Screen Results: OPI-Opiates, FEN-Fentanyl, BUP-Suboxone
[2018-09-16] MEDS ORDERED: guaiFENesin/D-METHORPHAN HB 10 ML UNIT-DOSE CUPS PO PRN (14:17)
[2018-09-16] MEDS ORDERED: MENTHOL/PHENOL 1 EACH UD MM PRN (14:17)
[2018-09-16] MEDS ORDERED: MAGNESIUM HYDROX 2400MG/30ML ORAL SUSPENSION 30 ML CUP PO PRN (14:17)
[2018-09-16] MEDS ORDERED: ACETAMINOPHEN 325 MG TABLET (FP) PO PRN (14:17)
[2018-09-16] MEDS ORDERED: hydrOXYzine PAMOATE 50 MG CAPSULE (FP) PO PRN (14:17)
[2018-09-16] MEDS ORDERED: chlordiazePOXIDE HCL 25 MG CAPSULE PO PRN (14:17)
[2018-09-16] MEDS ORDERED: LOPERAMIDE HCL 2 MG CAPSULE PO PRN (14:17)
[2018-09-16] MEDS ORDERED: MAG HYDROX/AL HYDROX/SIMETH 30 ML UNIT-DOSE CUP PO PRN (14:17)
[2018-09-16] MEDS ORDERED: P-EPHED 60MG/TRIPROLIDI 2.5MG TABLET PO PRN (14:17)
[2018-09-16] MEDS ORDERED: MAGNESIUM CITRATE 300 ML BOTTLE PO PRN (14:17)
[2018-09-16] MEDS ORDERED: ALBUTEROL SO4 8 GM HFA INHALER IH PRN (14:21)
[2018-09-16] MEDS: chlordiazePOXIDE HCL 25 MG CAPSULE PO SCH ×2 (16:24→22:19)
[2018-09-16] MEDS: THIAMINE HCL 100 MG TABLET (FP) PO SCH (22:19)
[2018-09-16] MEDS: BUPRENORPHINE/NALOXONE 8 MG/2 MG FILM PACKET SL SCH (22:19)
[2018-09-16] MEDS: MELATONIN 5 MG TABLETS PO PRN (22:20)
[2018-09-16 23:27] LABS: URINE APPEARANCE CLEAR; URINE BILIRUBIN NEGATIVE (<2.0 mg/dL); URINE COLOR LTYELLOW; URINE GLUCOSE (UA) 1+ (NEGATIVE); URINE KETONE NEGATIVE (NEGATIVE); URINE LEUK ESTERASE NEGATIVE (NEGATIVE); URINE NITRITE NEGATIVE (NEGATIVE); URINE PROTEIN NEGATIVE (NEGATIVE); URINE UROBILINOGEN NEGATIVE mg/dL (0.2-1.0)
[2018-09-17] MEDS: chlordiazePOXIDE HCL 25 MG CAPSULE PO SCH ×4 (05:34→22:07)
[2018-09-17] MEDS: BUPRENORPHINE/NALOXONE 8 MG/2 MG FILM PACKET SL SCH ×3 (05:34→22:41)
[2018-09-17] MEDS: PRENATAL VITAMINS W/ FOLIC ACID TABLET (FP) PO SCH (10:15)
[2018-09-17] MEDS: NIFEdipine E.R 60 MG TABLET (UD) PO SCH (10:15)
[2018-09-17] MEDS: ASPIRIN 325 MG TABLET PO SCH (10:16)
[2018-09-17 11:23] LABS: ALBUMIN 4.2 g/dl (3.4-5.0); ALK PHOS 71 U/L (45-117); ANION GAP 7 MMOL/L (8-16); BILIRUBIN,TOTAL 0.9 mg/dL (0.2-1); BLOOD UREA NITROGEN 14 mg/dL (7-18); CALCIUM 9.3 mg/dL (8.5-10.1); CHLORIDE 102 mmol/L (98-107); CO2 28 mmol/L (21-32); CREATININE 0.7 mg/dL (0.55-1.3); GLUCOSE,RANDOM 100 mg/dL (74-106); POTASSIUM 3.7 mmol/L (3.5-5.1); SGOT/AST 25 U/L (15-37); SGPT/ALT 29 U/L (13-61); SODIUM 138 mmol/L (136-145); TOT PROT 8.5 g/dl (6.4-8.2)
[2018-09-17 11:33] LABS: HEMATOCRIT 43.3 % (35.4-49); HEMOGLOBIN 14.1 GM/dL (11.7-16.9); MCHC 32.6 g/dl (32.0-35.9); MEAN PLT VOLUME 10.2 fl (7.5-11.1); PLATELET COUNT 178 K/MM3 (134-434); RBC 4.71 M/mm3 (4.00-5.60); WHITE BLOOD COUNT 6.7 K/mm3 (4.0-10.0)
--- NOTE | 2018-09-17 11:43 | PN ---
S CIWA - CIWA Score Nausea/Vomitin-No Nausea/No Vomiting Muscle Tremors: 1-None Visible, but [place] Anxiety: 4-Mod. Anxious/Guarded Agitation: 3 Paroxysmal Sweats: 2 Orientation: 0-Oriented Tacttile Disturbances: 0-None Auditory Disturbances: 0-None Visual Disturbances: 0-None Headache: 0-None Present CIWA-Ar Total Score: 10 BHS Progress Note (SOAP) Subjective: SLIGHT ANXIETY, SWEATS, FATIGUE. ALERT O X 3. NAD. Objective: 09/17/18 11:42 Vital Signs 09/17/18 09/17/18 06:18 11:00 Temperature 98.2 F 97.0 F L Pulse Rate 81 100 H Respiratory 18 20 Rate Blood Pressure 133/89 108/75 Laboratory Tests 09/16/18 09/17/18 09/17/18 23:10 05:40 05:40 WBC 6.7 RBC 4.71 Hgb 14.1 Hct 43.3 MCV 92.0 MCH 30.0 MCHC 32.6 RDW 14.0 Plt Count 178 D MPV 10.2 Sodium 138 Potassium 3.7 Chloride 102 Carbon Dioxide 28 Anion Gap 7 L BUN 14 Creatinine 0.7 Creat Clearance w eGFR > 60 Random Glucose 100 Calcium 9.3 Total Bilirubin 0.9 AST 25 ALT 29 Alkaline Phosphatase 71 Total Protein 8.5 H Albumin 4.2 Urine Color Ltyellow Urine Appearance Clear Urine pH 7.0 Ur Specific [place] 1.013 Urine Protein Negative Urine Glucose (UA) 1+ H Urine Ketones Negative Urine Blood Negative Urine Nitrite Negative Urine Bilirubin Negative Urine Urobilinogen Negative Ur Leukocyte Esterase Negative Assessment: 09/17/18 11:43 WITHDRAWAL SX Plan: CONTINUE DETOX
[2018-09-17] MEDS ORDERED: FLU VACCINE QUAD 60 MCG/0.5 ML (MDV 18-19) IM ONE (12:00)
[2018-09-17] MEDS ORDERED: PNEUMOC 13-VAL CONJ-DIP CRM/PF 0.5 ML DISP.SYRIN IM ONE (12:00)
[2018-09-17] MEDS ORDERED: PNEUMOCOCCAL 23 VACCINE 0.5 ML VIAL IM ONE (12:00)
[2018-09-17] MEDS: MELATONIN 5 MG TABLETS PO PRN (22:08)
[2018-09-17] MEDS: THIAMINE HCL 100 MG TABLET (FP) PO SCH (22:08)
[2018-09-18] MEDS: BUPRENORPHINE/NALOXONE 8 MG/2 MG FILM PACKET SL SCH ×3 (05:47→22:21)
[2018-09-18] MEDS: chlordiazePOXIDE HCL 25 MG CAPSULE PO SCH ×2 (05:47→10:23)
[2018-09-18] MEDS: IBUPROFEN 400 MG TABLET (FP) PO PRN (06:41)
[2018-09-18] MEDS: NIFEdipine E.R 60 MG TABLET (UD) PO SCH (10:22)
[2018-09-18] MEDS: PRENATAL VITAMINS W/ FOLIC ACID TABLET (FP) PO SCH (10:22)
[2018-09-18] MEDS: ASPIRIN 325 MG TABLET PO SCH (11:08)
[2018-09-18] MEDS: NICOTINE 14 MG/24 HOURS TOPICAL PATCH TD SCH (11:37)
--- NOTE | 2018-09-18 16:58 | PN ---
[facility] CIWA - CIWA Score Nausea/Vomitin-Mild Nausea/No Vomiting Muscle Tremors: 4-Moderate,w/Arms Extend Anxiety: 4-Mod. Anxious/Guarded Agitation: 2 Paroxysmal Sweats: 3 Orientation: 0-Oriented Tacttile Disturbances: 1-Very Mild Itch/Numbness Auditory Disturbances: 0-None Visual Disturbances: 0-None Headache: 1-Very Mild CIWA-Ar Total Score: 16 BHS Progress Note (SOAP) Subjective: Knee pain, anxious, interrupted sleep, restless Objective: 09/18/18 16:52 Last Vital Signs Temp Pulse Resp BP Pulse Ox 97.6 F 85 20 114/83 09/18/18 15:02 09/18/18 15:02 09/18/18 15:02 09/18/18 15:02 Laboratory Tests 09/16/18 09/17/18 09/17/18 23:10 05:40 05:40 WBC 6.7 RBC 4.71 Hgb 14.1 Hct 43.3 MCV 92.0 MCH 30.0 MCHC 32.6 RDW 14.0 Plt Count 178 D MPV 10.2 Sodium 138 Potassium 3.7 Chloride 102 Carbon Dioxide 28 Anion Gap 7 L BUN 14 Creatinine 0.7 Creat Clearance w eGFR > 60 Random Glucose 100 Calcium 9.3 Total Bilirubin 0.9 AST 25 ALT 29 Alkaline Phosphatase 71 Total Protein 8.5 H Albumin 4.2 Urine Color Ltyellow Urine Appearance Clear Urine pH 7.0 Ur Specific [place] 1.013 Urine Protein Negative Urine Glucose (UA) 1+ H Urine Ketones Negative Urine Blood Negative Urine Nitrite Negative Urine Bilirubin Negative Urine Urobilinogen Negative Ur Leukocyte Esterase Negative RPR Titer 09/17/18 05:40 WBC RBC Hgb Hct MCV MCH MCHC RDW Plt Count MPV Sodium Potassium Chloride Carbon Dioxide Anion Gap BUN Creatinine Creat Clearance w eGFR Random Glucose Calcium Total Bilirubin AST ALT Alkaline Phosphatase Total Protein Albumin Urine Color Urine Appearance Urine pH Ur Specific [place] Urine Protein Urine Glucose (UA) Urine Ketones Urine Blood Urine Nitrite Urine Bilirubin Urine Urobilinogen Ur Leukocyte Esterase RPR Titer Nonreactive Labs reviewed: UA shows 1+ glucose Assessment: 09/18/18 16:53 Withdrawal sxs Noted with glycosuria Plan: Continue detox Glycosuria: encouraged PO water intake, repeat UA
[2018-09-18] MEDS: chlordiazePOXIDE 5 MG CAPSULE PO SCH ×2 (17:00→22:21)
--- NOTE | 2018-09-18 19:46 | EKG ---
Test Reason : Blood Pressure : / mmHG Vent. Rate : 079 BPM Atrial Rate : 079 BPM P-R Int : 180 ms QRS Dur : 084 ms QT Int : 414 ms P-R-T Axes : 051 004 040 degrees QTc Int : 474 ms NORMAL SINUS RHYTHM LEFT ATRIAL ENLARGEMENT BORDERLINE ECG WHEN COMPARED WITH ECG OF 22-APR-2017 16:04, NO SIGNIFICANT CHANGE WAS FOUND Confirmed by STAN EWING MD ([id number]) on 09/18/2018 7:46:08 PM Referred By: Confirmed By:STAN EWING MD
[2018-09-18] MEDS: THIAMINE HCL 100 MG TABLET (FP) PO SCH (22:21)
[2018-09-18] MEDS: MELATONIN 5 MG TABLETS PO PRN (22:21)
[2018-09-19] MEDS: chlordiazePOXIDE 5 MG CAPSULE PO SCH ×2 (05:29→10:21)
[2018-09-19] MEDS: BUPRENORPHINE/NALOXONE 8 MG/2 MG FILM PACKET SL SCH ×3 (05:29→22:08)
[2018-09-19] MEDS: ASPIRIN 325 MG TABLET PO SCH (10:20)
[2018-09-19] MEDS: PRENATAL VITAMINS W/ FOLIC ACID TABLET (FP) PO SCH (10:20)
[2018-09-19] MEDS: NIFEdipine E.R 60 MG TABLET (UD) PO SCH (10:20)
[2018-09-19] MEDS: NICOTINE 14 MG/24 HOURS TOPICAL PATCH TD SCH (10:23)
[2018-09-19 14:15] LABS: URINE APPEARANCE CLEAR; URINE BILIRUBIN NEGATIVE (<2.0 mg/dL); URINE COLOR YELLOW; URINE GLUCOSE (UA) NEGATIVE (NEGATIVE); URINE KETONE NEGATIVE (NEGATIVE); URINE LEUK ESTERASE NEGATIVE (NEGATIVE); URINE NITRITE NEGATIVE (NEGATIVE); URINE PROTEIN NEGATIVE (NEGATIVE); URINE UROBILINOGEN NEGATIVE mg/dL (0.2-1.0)
--- NOTE | 2018-09-19 15:59 | PN ---
[facility] Progress Note (SOAP) Subjective: sweats Requesting early discharge on 09/20 Objective: 09/19/18 15:57 A & ox 3 gait steady Assessment: 09/19/18 15:58 withdrawal sx Plan: continue detox for d/c tomorrow
[2018-09-19] MEDS: chlordiazePOXIDE HCL 10 MG CAPSULE PO SCH ×2 (17:43→22:08)
[2018-09-19] MEDS: IBUPROFEN 400 MG TABLET (FP) PO PRN (17:45)
[2018-09-19] MEDS: THIAMINE HCL 100 MG TABLET (FP) PO SCH (22:08)
[2018-09-20] MEDS: chlordiazePOXIDE HCL 10 MG CAPSULE PO SCH (06:00)
[2018-09-20] MEDS: BUPRENORPHINE/NALOXONE 8 MG/2 MG FILM PACKET SL SCH (06:00)
[2018-09-20 06:44] VITALS: BP 106/65; PULSE 80; TEMP 96.3
--- NOTE | 2018-09-20 11:32 | DS ---
[facility] Detox Discharge Summary Admission Date: 09/16/18 Discharge Date: 09/20/18 - History Present History: Alcohol Dependence, MMTP Pertinent Past History: Alcohol dependence Nicotine dependence Asthma HTN Hepatitis C Opioid dependence on agonist Thoracic aortic aneurysm - Physical Exam Results Vital Signs: Vital Signs Temperature 96.3 F L 09/20/18 06:43 Pulse Rate 80 09/20/18 06:43 Respiratory Rate 18 09/20/18 06:43 Blood Pressure 106/65 09/20/18 06:43 O2 Sat by Pulse Oximetry (%) Pertinent Admission Physical Exam Findings: Withdrawal symptoms Laboratory Tests 09/16/18 09/17/18 09/17/18 23:10 05:40 05:40 WBC 6.7 RBC 4.71 Hgb 14.1 Hct 43.3 MCV 92.0 MCH 30.0 MCHC 32.6 RDW 14.0 Plt Count 178 D MPV 10.2 Sodium 138 Potassium 3.7 Chloride 102 Carbon Dioxide 28 Anion Gap 7 L BUN 14 Creatinine 0.7 Creat Clearance w eGFR > 60 Random Glucose 100 Calcium 9.3 Total Bilirubin 0.9 AST 25 ALT 29 Alkaline Phosphatase 71 Total Protein 8.5 H Albumin 4.2 Urine Color Ltyellow Urine Appearance Clear Urine pH 7.0 Ur Specific [place] 1.013 Urine Protein Negative Urine Glucose (UA) 1+ H Urine Ketones Negative Urine Blood Negative Urine Nitrite Negative Urine Bilirubin Negative Urine Urobilinogen Negative Ur Leukocyte Esterase Negative RPR Titer 09/17/18 09/19/18 05:40 11:10 WBC RBC Hgb Hct MCV MCH MCHC RDW Plt Count MPV Sodium Potassium Chloride Carbon Dioxide Anion Gap BUN Creatinine Creat Clearance w eGFR Random Glucose Calcium Total Bilirubin AST ALT Alkaline Phosphatase Total Protein Albumin Urine Color Yellow Urine Appearance Clear Urine pH 5.0 D Ur Specific [place] 1.019 Urine Protein Negative Urine Glucose (UA) Negative Urine Ketones Negative Urine Blood Negative Urine Nitrite Negative Urine Bilirubin Negative Urine Urobilinogen Negative Ur Leukocyte Esterase Negative RPR Titer Nonreactive Labs reviewed - Treatment Hospital Course: Detox Protocol Followed, Detoxed Safely, Responded well, Discharged Condition Good - Medication Discharge Medications: Ambulatory Orders Albuterol Sulfate Inhaler - [Ventolin HFA Inhaler -] 2 inh PO Q4H PRN #1 inh Aspirin [ASA -] 325 mg PO DAILY 09/16/18 Metoprolol Succinate [Toprol Xl] 50 mg PO DAILY 09/16/18 Nifedipine [Nifedipine ER] 60 mg PO DAILY 09/16/18 - Diagnosis (1) Glycosuria with normal serum glucose Status: Acute (2) Alcohol dependence with uncomplicated withdrawal Status: Acute (3) Nicotine dependence Status: Chronic Qualifiers: Nicotine product type: cigarettes Substance use status: in withdrawal Qualified Code(s): F17.213 - Nicotine dependence, cigarettes, with withdrawal (4) Thoracic aortic aneurysm, ruptured Status: Chronic (5) Asthma Status: Chronic Qualifiers: Asthma severity: mild intermittent Asthma complication type: uncomplicated (6) Encounter for monitoring Suboxone maintenance therapy Status: Chronic (7) Essential (primary) hypertension Status: Chronic (8) Hepatitis C Status: Chronic Qualifiers: Viral hepatitis chronicity: chronic - AMA Did Patient Leave Against Medical Advice: No (F/U with your PCP within 1-2 weeks )
== END 2018-09-20 07:00 | disposition home or self-care (01) | DRG 773 ==
LOC: YASAS 10:26 → Y3N 14:33
PROC: HZ2ZZZZ Detoxification Services for Substance Abuse Treatment (ICD-10-PCS; principal; 2018-09-16)
DX: F10.230 Alcohol dependence with withdrawal, uncomplicated (principal); F11.20 Opioid dependence, uncomplicated; F17.213 Nicotine dependence, cigarettes, with withdrawal; F19.24 Other psychoactive substance dependence with psychoactive substance-induced mood disorder; I10 Essential (primary) hypertension; J45.20 Mild intermittent asthma, uncomplicated; B18.2 Chronic viral hepatitis C; R81 Glycosuria; Z86.79 Personal history of other diseases of the circulatory system
CPT/HCPCS: 36415; 80053; 81003; 85027; 86593; 93005; 93010